=== PATIENT | female | born 1960 | race Caucasian/White ===

== ENCOUNTER 2024-07-20 09:21 | Emergency (ER) | payer OTHER, SELFPAY ==
[2024-07-20 09:26] VITALS: BP 142/92; PULSE 108; O2SAT 100; BMI 25.0
--- NOTE | 2024-07-20 09:57 | CT_ITS ---
[address] [address] Patient Name: LARY HENNING MRN: [facility]:[id number] date: 1960 Sex: F Assigned Patient Location: Current Patient Location: Accession/Order Number: [id number] Exam Date: 07/20/2024 10:08 Report Date: 07/20/2024 10:52 At the request of: ALEJANDRA GARCIA Procedure: CT lumbar spine wo con CT lumbar spine without contrast, 07/20/2024. HISTORY: Sciatic pain. Back pain. Left leg pain. COMPARISON: None. TECHNIQUE: Noncontrast axial CT images obtained through the lumbar spine. Reconstructions obtained in the sagittal and coronal planes. Dose reduction techniques were achieved by using automated exposure control and/or adjustment of mA and/or kV according to patient size and/or use of iterative reconstruction technique. FINDINGS: There are postoperative changes from posterior lumbar interbody fusion and fixation at L4-L5 and L5-S1. Hardware is intact. There is good fusion across the L4-L5 and L5-S1 disc spaces and facet joints. Bilateral sacroiliac joint arthrodesis is noted. No acute compression fracture. The patient is osteopenic. Spinal stimulator leads enter the spinal canal at the T12-L1 level and extend cranially in the posterior epidural space. At L3-L4, there is severe facet arthropathy. Moderate degenerative disc disease with vacuum disc phenomenon. There is grade 1 spondylolisthesis measuring 3 mm. Spondylolisthesis, disc bulge, facet hypertrophy, and ligamentum flavum thickening result in severe spinal stenosis at the L3-L4 level. There is severe right neural foraminal narrowing. Moderate left foraminal narrowing. L2-L3, mild degenerative disc disease. Mild facet arthropathy with ligamentum flavum thickening. There is diffuse disc bulge. Moderate spinal canal stenosis. Mild to moderate bilateral foraminal narrowing. L1-L2, no significant spinal canal stenosis or foraminal narrowing. No paraspinal soft tissue swelling. No paraspinal mass. CT/CT lumbar spine wo con IMPRESSION: 1. No acute compression fracture. 2. There are postoperative changes from previous interbody fusion and pedicle screw and anuja fixation at L4-L5 and L5-S1. There is good fusion at these levels. No spinal stenosis at these levels. 3. At L3-L4, there is severe facet arthropathy and moderate degenerative disc disease as well as grade 1 spondylolisthesis. There is disc bulge and ligamentum flavum thickening. These findings result in severe spinal stenosis. There is severe right foraminal narrowing and moderate left foraminal narrowing. 4. Degenerative changes at the L2-L3 level result in moderate spinal canal stenosis. Electronically authenticated by: MEGA HERBERT Date: 07/20/2024 10:52
[2024-07-20] MEDS: KETOROLAC TROMETHAMINE 30 MG/ML VIAL IM (10:05)
--- NOTE | 2024-07-20 14:38 | ED.BACK1 ---
HPI HPI - Back Pain/Injury General Chief Complaint: Back Pain/Injury Stated Complaint: SIATIC NERVE PAIN Time Seen by Provider: 07/20/24 09:39 Source: patient Mode of arrival: walk-in Limitations: no limitations History of Present Illness HPI Narrative: The patient have a history of chronic back pain and history of back surgery and placement of a stimulator, is coming to the ER with increasing pain for the last 8 months increased over the last few days to be according to her unbearable, the patient pain is not associated with any nausea vomiting trauma or fall, the patient also had no weakness numbness or tingling the pain radiate down her leg mostly down her thigh on the lateral aspect of the left side. The patient mentioned that she did not take any pain medication she only took Flexeril No history of incontinence of urine or stool Related Data Home Medications ?Medication ?Instructions ?Recorded ?Confirmed buspirone 10 mg tablet 10 mg PO BID 07/20/24 07/20/24 cyclobenzaprine 10 mg tablet 10 mg PO Q8H 07/20/24 07/20/24 mirtazapine 15 mg tablet 15 mg PO BEDTIME 07/20/24 07/20/24 rosuvastatin 10 mg tablet 10 mg PO DAILY 07/20/24 07/20/24 umeclidinium 62.5 mcg-vilanterol 1 inh inhalation Q24H 07/20/24 07/20/24 25 mcg/actuation powdr for inhalation (Anoro Ellipta) vortioxetine 20 mg tablet 20 mg PO DAILY 07/20/24 07/20/24 (Trintellix) Previous Rx's ?Medication ?Instructions ?Recorded diclofenac sodium 50 mg 50 mg PO Q12H PRN pain #14 tabs 07/20/24 tablet,delayed release prednisone 50 mg tablet 50 mg PO DAILY 5 days #5 tabs 07/20/24 Allergies Allergy/AdvReac Type Severity Reaction Status Date / Time acetaminophen (From Tylenol) AdvReac Severe Abdominal Verified 07/20/24 09:26 Pain Opioid HPI Opioid Management Most Recent Opioid Data: Last Pain Scale 10 07/20/24 10:05 07/20/24 Last AUG Pain Assessment 07/20/24 10:05 Review of Systems ROS Status of ROS 10 or more systems reviewed and unremarkable except as noted in history and below PFSH PFSH Social History Little interest or pleasure in doing things: not at all Feeling down, depressed, or hopeless: not at all Exam Narrative Exam Narrative: Nurses notes and vital signs reviewed and patient is not hypoxic. General: Well-appearing and in no apparent distress. Skin: Warm, dry, no pallor noted. No rash. Head: Normocephalic, atraumatic. Neck: Supple, non-tender. Eye: Pupils are equal, round and EOMI. No scleral icterus. Ears, Nose, Mouth, and Throat: TM are clear, no nasal mucosal hypertrophy. Oral mucosa is moist, no posterior oropharynx erythema, uvula is mid-line Cardiovascular: Regular Rate and Rhythm without murmur, gallop or rub. Respiratory: No accessory muscle use or respiratory distress. Lungs are clear to auscultation, no wheezing, rales or rhonchi Chest Wall: no tenderness Back: No midline thoracic or lumbar vertebral tenderness. No CVA tenderness there is paraspinal muscle tenderness to the left side of the upper lumbar spine. Musculoskeletal: normal ROM, no calf or popliteal tenderness, no lower extremity edema/swelling GI: Abdomen is soft, non-distended. Normal bowel sounds. No masses appreciated. No tenderness to palpation. No rebound, guarding, or rigidity noted. Neurological: A&O x4. No cranial nerve dysfunction observed. No truncal ataxia. Moves all extremities. Sensation intact. Psychiatric: Cooperative and interactive. Normal mood and affect. Constitutional Vital Signs, click to edit/add: Last Vital Signs Pulse 108 H 07/20/24 09:26 Resp 07/20/24 09:26 BP 142/92 H 07/20/24 09:26 Pulse Ox 100 07/20/24 09:26 O2 Del Method Room Air 07/20/24 09:26 Course Vital Signs Vital signs: Vital Signs Pulse Rate 108 H 07/20/24 09:26 Respiratory Rate 07/20/24 09:26 Blood Pressure 142/92 H 07/20/24 09:26 Pulse Oximetry 100 07/20/24 09:26 Oxygen Delivery Method Room Air 07/20/24 09:26 Pulse Rate 108 H 07/20/24 09:26 Respiratory Rate 20 07/20/24 09:26 Blood Pressure 142/92 H 07/20/24 09:26 Pulse Oximetry 100 07/20/24 09:26 Oxygen Delivery Method Room Air 07/20/24 09:26 MDM - Back Pain/Injury MDM Narrative Medical decision making narrative: The patient was provided with Toradol in the ER after which she was feeling better The patient also had a CT lumbar spine showing that the patient have significant multiple disc disease and I did discuss the patient case with Dr. Alexis Welsh from the [facility] He mentioned that he just want the patient to be on steroid and he will see her in few weeks Patient was discharged home with Voltaren as well as prednisone instructed to come back in case of any alarming symptoms and she was educated about them The patient is to follow up with primary care physician in next 2-3 days or to return to the emergency department should any of the signs or symptoms worsen or new symptoms develop. The patient agrees with the following Diagnosis and Treatment plan and the patient will be discharged home. Discharge Plan Discharge Chief Complaint: Back Pain/Injury Clinical Impression: Sciatica Patient Disposition: Home, Self-Care Time of Disposition Decision: 11:25 Condition: Good Prescriptions / Home Meds: New prednisone 50 mg tablet 50 mg PO DAILY 5 Days Qty: 5 0RF diclofenac sodium 50 mg tablet,delayed release (DR/EC) 50 mg PO Q12H PRN (Reason: pain) Qty: 14 0RF No Action buspirone 10 mg tablet 10 mg PO BID cyclobenzaprine 10 mg tablet 10 mg PO Q8H mirtazapine 15 mg tablet 15 mg PO BEDTIME rosuvastatin 10 mg tablet 10 mg PO DAILY Anoro Ellipta 62.5-25 mcg/actuation blister with device 1 inh INHALATION Q24H Trintellix 20 mg tablet 20 mg PO DAILY Print Language: Tongan Instructions: Sciatica (ED) Referrals: Dannielle LAMB [Primary Care Provider] - 1 week Discharge Date/Time: 07/20/24 11:42
== END 2024-07-20 11:42 | disposition home or self-care (01) ==
PROVIDERS: Emergency Provider Emergency Medicine; PCP Family Medicine
DX: M54.32 Sciatica, left side (principal); M51.369 Other intervertebral disc degeneration, lumbar region without mention of lumbar back pain or lower extremity pain; Z98.1 Arthrodesis status
CPT/HCPCS: 72131; 96372; 99284; J1885